=== PATIENT | female | born 1970 | race Two or more races ===

== ENCOUNTER 2018-02-28 16:14 | Emergency (ER) | payer SELFPAY ==
[~2018-02-28] VITALS: Ht 165.1 cm; Wt 88.5 kg
[2018-02-28 16:27] VITALS: Ht 165.1 cm; Wt 88.5 kg
[2018-02-28 17:55] VITALS: BP 121/74
== END 2018-02-28 17:55 | disposition home or self-care (01) ==
LOC: ED 16:14
DX: S39.012A Strain of muscle, fascia and tendon of lower back, initial encounter (principal); Z88.0 Allergy status to penicillin; V89.2XXA Person injured in unspecified motor-vehicle accident, traffic, initial encounter; Y93.73 Activity, racquet and hand sports; Y92.488 Other paved roadways as the place of occurrence of the external cause; Y99.8 Other external cause status
CPT/HCPCS: J1885